=== PATIENT | female | born 1960 | race Caucasian/White ===

== ENCOUNTER 2017-01-27 19:47 | Emergency (ER) | payer MEDICARE, OTHER ==
[~2017-01-27] VITALS: Ht 167.6 cm; Wt 70.9 kg
[~2017-01-27 19:47] MED LIST: LEVO.075 PO; POLY10O EACH EYE
[2017-01-27 20:03] VITALS: BP 149/105; PULSE 85; RESP 16; TEMP 98.1; O2SAT 99
[2017-01-27] MEDS ORDERED: LEVO.075 PO (20:17)
--- NOTE | 2017-01-27 21:05 | PD ---
HPI Chief Complaint: Musculoskeletal Complaint Time Seen by Provider: 20:35 Travel History International Travel<30 days: No Contact w/Intl Traveler<30days: No Traveled to known affect area: No History of Present Illness HPI 57 year old female [facility] emergency department for evaluation of left ankle pain and right foot pain after a mechanical fall last night from a standing position. She reports that she was walking to the bathroom in the middle of the night and forgot to step down into her sunken living room causing her to fall. She denies head injury. No loss of consciousness. She is not anticoagulated. She has no other pain other than the left ankle and right foot. She reports the pain is constant, worse with movement, nonradiating, relieved with rest 6 out of 10 severity. PFSH Past Medical History Arthritis: Yes Asthma: No Autoimmune Disease: Yes (EMRE LAZARO VIRUS; FIBROMYALGIA.) Blood Disorders: No Anxiety: Yes Depression: Yes (RECENT LOSS OF HER SON) Heart Rhythm Problems: No Cancer: No Cardiac Catheterization: Yes Cardiovascular Problems: No High Cholesterol: No Chemotherapy: No Chest Pain: No Congestive Heart Failure: No COPD: No Cerebrovascular Accident: No Diabetes: No Diminished Hearing: No Endocrine: No Gastrointestinal Disorders: Yes (IBS) GERD: No Glaucoma: No Genitourinary: Yes (HOSPITALIZED IN OCTOBER 2007 FOR KIDNEY INFECTION.) Headaches: Yes Hepatitis: Yes (HEPATITIS C PT STATES SHE NO LONGER HAS DUE TO GOING TO A REVIVAL) Hiatal Hernia: No Heparin Induced Thrombocytopen: No Hypertension: No Immune Disorder: No Kidney Stones: No Musculoskeletal: Yes (CONNECTIVE TISSUE DISEASE) Neurologic: Yes Psychiatric: No Reproductive: Yes (ENDOMETRIOSIS) Respiratory: No Migraines: Yes Myocardial Infarction: No Radiation Therapy: No Renal Failure: No Seizures: No Sickle Cell Disease: No Sleep Apnea: No Thyroid Disease: Yes Ulcer: No Influenza Vaccination: No ?: Not Menopausal: Yes Past Surgical History Abdominal Surgery: Yes (HYSTERECTOMY; [facility] 1991) AICD: No Appendectomy: No Arteriovenous Shunt: No Cardiac Surgery: No Cholecystectomy: No Ear Surgery: No Endocrine Surgery: No Eye Surgery: No Genitourinary Surgery: No Gynecologic Surgery: Yes (HYSTERECTOMY) Hysterectomy: Yes Insulin Pump: No Joint Replacement: No Neurologic Surgery: No Oral Surgery: No Pacemaker: No Thoracic Surgery: No Other Surgery: Yes (HENRIK VEIN STRIPPING JUN 2007, BREAST AUGMENTATION ) Social History Alcohol Use: No Tobacco Use: No Substance Use: No Allergies-Medications (Allergen,Severity, Reaction): Coded Allergies: Morphine (Verified Allergy, Intermediate, Rash, 05/16/11) Reported Meds & Prescriptions Reported Meds & Active Scripts Active Reported Synthroid (Levothyroxine Sodium) 75 Mcg Tab 75 Mcg PO DAILY Physical Exam Narrative GENERAL: Well-nourished, well-developed patient. SKIN: Focused skin assessment warm/dry. Ecchymosis over the dorsal aspect of the right foot near metatarsal heads. HEAD: Normocephalic. EYES: No scleral icterus. No injection or drainage. NECK: Supple, trachea midline. No JVD or lymphadenopathy. CARDIOVASCULAR: Regular rate and rhythm without murmurs, gallops, or rubs. RESPIRATORY: Breath sounds equal bilaterally. No accessory muscle use. GASTROINTESTINAL: Abdomen soft, non-tender, nondistended. MUSCULOSKELETAL: No cyanosis, 2+ distal pulses, extremities neurovascular intact. Left ankle: Tenderness and mild swelling to the lateral malleolus. No deformity. Right foot: Notable swelling and ecchymosis to the dorsal aspect near the metatarsal heads. No deformity. BACK: Nontender without obvious deformity. No CVA tenderness. Data Data Last Documented VS Vital Signs Date Time Temp Pulse Resp B/P Pulse Ox O2 Delivery O2 Flow Rate FiO2 01/27/17 20:03 98.1 85 16 149/105 99 Orders Foot, Complete ([id number]) (01/27/17 ) Ankle, Complete ([id number]) (01/27/17 ) Splint Or Brace Apply/Monitor (01/27/17 22:17) Crutches (01/27/17 22:17) MDM Medical Decision Making Medical Screen Exam Complete: Yes Emergency Medical Condition: Yes Medical Record Reviewed: Yes Differential Diagnosis Ankle fracture, Ankle sprain, foot fracture, midfoot sprain Narrative Course 57-year-old female per[facility] emergency department for evaluation of left ankle pain and right foot pain status post mechanical fall last night. Patient denies numbness or tingling in the extremities. She has pain with weightbearing. X-ray pending X-ray left ankle: Negative for fracture X-ray right foot: Nondisplaced fracture of the third and fourth metatarsal head Posterior short leg splint put on right leg by [employer]. Post-splint application reassessment: Extremity is neurovascular intact. Raul wrap applied to left ankle. Patient instructed to follow up with her portrait studio photographer/orthopedist. Patient is ambulatory and room and ready for discharge. Discussed pain medication options with patient she decided upon Motrin for pain. Diagnosis Primary Impression: Metatarsal fracture Qualified Code: S92.301A - Closed nondisplaced fracture of metatarsal bone of right foot, unspecified metatarsal, initial encounter Additional Impression: Ankle sprain Qualified Code: S93.402A - Sprain of left ankle, unspecified ligament, initial encounter Referrals: Orthopedist Lab Technician Patient Instructions: Foot Fracture in Adults (ED), General Instructions Additional Instructions: Keep the splint in place until follow-up with your portrait studio photographer. Elevate and ice the extremity. Make an appointment with her portrait studio photographer for follow-up this week. Return to the emergency department for evaluation if you develop increasing severe pain, numbness or tingling in the extremity, change in color or temperature of the extremity. Scripts Ibuprofen 800 Mg Doe029 Mg PO Q8H PRN (Pain/Inflammation) #30 TAB Prov:Adri Garland 01/27/17 Disposition: 01 DISCHARGE HOME Condition: Stable Adri Garland Jan 27, 2017 21:04
--- NOTE | 2017-01-27 22:02 | RADHPO ---
EXAM DATE/TIME: 01/27/2017 21:34 [facility] COMPARISON: No previous studies available for comparison. INDICATIONS : Patient tripped down stairs and hit ankle on step. MEDICAL HISTORY : None. SURGICAL HISTORY : None. ENCOUNTER: Initial ACUITY: 1 day PAIN SCORE: 8/10 LOCATION: Left Lateral ankle. FINDINGS: Three view exam was performed of the left ankle. The bony structures are in normal alignment. No ev idence of fracture, dislocation, or soft tissue swelling. The ankle mortise is intact. No radiopaqu e foreign bodies are seen. Bony mineralization is normal. CONCLUSION: Unremarkable examination of the left ankle. Sandeep Mccollum MD on January 27, 2017 at 21:59 Board Certified Radiologist. This report was verified electronically.
--- NOTE | 2017-01-27 22:06 | RADHPO ---
EXAM DATE/TIME: 01/27/2017 21:34 [facility] COMPARISON: No previous studies available for comparison. INDICATIONS : Patient twisted foot falling down steps. MEDICAL HISTORY : None. SURGICAL HISTORY : None. ENCOUNTER: Initial ACUITY: 1 day PAIN SCORE: 4/10 LOCATION: Right Lateral foot. FINDINGS: There are mildly displaced fractures involving the third and fourth toe metatarsal heads with slight lateral and plantar shift of the minor distal fragments. The metatarsophalangeal articulations appear grossly intact. CONCLUSION: Oblique mildly displaced fractures involving the third and fourth metatarsal heads Sandeep Mccollum MD on January 27, 2017 at 22:03 Board Certified Radiologist. This report was verified electronically.
[2017-01-27] MEDS ORDERED: IBUP800T23 PO (22:25)
== END 2017-01-27 22:51 | disposition home or self-care (01) ==
LOC: PHEFT 19:47
DX: S92.301A Fracture of unspecified metatarsal bone(s), right foot, initial encounter for closed fracture (principal); S93.402A Sprain of unspecified ligament of left ankle, initial encounter; W17.89XA Other fall from one level to another, initial encounter; Y93.01 Activity, walking, marching and hiking; Y92.008 Other place in unspecified non-institutional (private) residence as the place of occurrence of the external cause
CPT/HCPCS: 29515; 73610; 73630; 99283; E0113